=== PATIENT | female | born 1990 ===

== ENCOUNTER 2022-01-04 18:14 | Inpatient (IN) | payer SELFPAY ==
[2022-01-04] MEDS ORDERED: Misoprostol 200 MCG Tab ONE (18:37)
[2022-01-04] MEDS ORDERED: Lidocaine 1% 50 ML MDV ONE (18:49)
[2022-01-04] MEDS ORDERED: Ketorolac 30 MG/ML SDV IVPUSH ONE (19:26)
[2022-01-04] MEDS ORDERED: Ibuprofen 800 MG Tab PO PRN (19:40)
[2022-01-04] MEDS ORDERED: Lanolin 100% Cream 7 GM Tube TOP PRN (19:40)
[2022-01-04] MEDS ORDERED: Witch Hazel Medicated Pads 40/Jar TOP PRN (19:40)
[2022-01-04] MEDS ORDERED: Bisacodyl 10 MG Supp RECTAL PRN (19:40)
[2022-01-04] MEDS ORDERED: Docusate Sodium 100 MG Cap PO PRN (19:40)
[2022-01-04] MEDS ORDERED: Benzocaine/Menthol 20%-0.5% Spray 78 GM Cannister TOP PRN (19:40)
[2022-01-04] MEDS ORDERED: Acetaminophen 500 MG Tab PO PRN ×2 (19:40)
[2022-01-04] MEDS ORDERED: oxyCODONE 5 MG Tab PO PRN (19:40)
== END 2022-01-06 23:45 | disposition home or self-care (01) | DRG 805 ==
LOC: MW.OBCHECK 18:14 → MW.OB 18:28
PROVIDERS: ADMIT Obstetrics & Gynecology Obstetrics; ATTEND Obstetrics & Gynecology Obstetrics
PROC: 10E0XZZ Delivery of Products of Conception, External Approach (ICD-10-PCS; principal; 2022-01-04)
PROC: 0KQM0ZZ Repair Perineum Muscle, Open Approach (ICD-10-PCS; 2022-01-04)
DX: O99.334 Smoking (tobacco) complicating childbirth (principal); U07.1 COVID-19; Z37.0 Single live birth; O98.52 Other viral diseases complicating childbirth; Z3A.39 39 weeks gestation of pregnancy; O70.1 Second degree perineal laceration during delivery; Z20.822 Contact with and (suspected) exposure to COVID-19; F17.200 Nicotine dependence, unspecified, uncomplicated
CPT/HCPCS: 36415; 59025; 59409; 82803; 85014; 85018; 85025; 86592; 86850; 86900; 86901; A9270-GY; J2001; U0002